=== PATIENT | female | born 1980 | race Two or more races ===

== ENCOUNTER 2016-11-21 19:46 | Emergency (ER) | payer MEDICAID ==
[~2016-11-21] VITALS: Ht 177.8 cm; Wt 70.3 kg
[2016-11-21 19:58] VITALS: BP 100/54
== END 2016-11-21 21:15 | disposition home or self-care (01) ==
LOC: ER 19:49
DX: S61.211D Laceration without foreign body of left index finger without damage to nail, subsequent encounter (principal); W25.XXXD Contact with sharp glass, subsequent encounter
CPT/HCPCS: 99281; A4606; Z7610; Z7502